=== PATIENT | male | born 1980 ===

== ENCOUNTER 2016-11-04 16:53 | Emergency (ER) | payer MEDICAID ==
[2016-11-04 17:20] VITALS: BP 126/70; PULSE 75; RESP 18; TEMP 99.5; O2SAT 98
--- NOTE | 2016-11-04 18:28 | ED PDOC ---
HPI: Wound Care - HPI Time Seen by Provider: 11/04/16 17:34 Chief Complaint (Nursing): Finger,Hand,&Wrist Chief Complaint (Provider): Right Hand Injury History Per: Patient History Of Present Illness: Alberto Fitzpatrick, a 36 year old male, presents to the ED for a laceration to his right palm. 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 Tetanus up to date. Denies numbness and tingling to right hand. The patient also reports some swelling to his ear. He states that it has been purulent with a foul odor for the past 2 months. He states that he was given antibiotics which did help but eventually the symptoms came back. Denies fevers , chills and injury to ear. Exam Limitations: no limitations Onset/Duration Of Symptoms: Hrs Current Symptoms Are (Timing): Still Present Location Of Injury: Right: Hand (Right palm) Past Medical History Reviewed: Historical Data, Nursing Documentation, Vital Signs Vital Signs: Last Vital Signs Temp 99.5 F 11/04/16 17:15 Pulse 75 11/04/16 17:15 Resp 18 11/04/16 17:15 BP 126/70 11/04/16 17:15 Pulse Ox 98 11/04/16 17:15 - Medical History PMH: Asthma - Social History Current smoker - smoking cessation education provided: No Ex-Smoker (has not smoked in the last 12 months): No Alcohol: None Drugs: Denies - Immunization History Hx Tetanus Toxoid Vaccination: Yes - Home Medications Home Medications: Ambulatory Orders Medication Instructions Recorded Amoxicillin/Clavulanate [Augmentin 1 tab PO BID #14 tab 11/04/16 500 MG-125 MG] Fluconazole [Diflucan] 200 mg PO DAILY #7 tab 11/04/16 - Allergies Allergies/Adverse Reactions: Allergies Allergy/AdvReac Type Severity Reaction Status Date / Time No Known Allergies Allergy Verified 11/04/16 17:15 Review of Systems ENT: Positive for: Ear Pain, Ear Discharge (purulent discharge and drainage) Musculoskeletal: Positive for: Hand Pain (laceration to right palm) Physical Exam - Reviewed Nursing Documentation Reviewed: Yes Vital Signs Reviewed: Yes - Physical Exam Appears: Positive for: Non-toxic, No Acute Distress Head Exam: Positive for: ATRAUMATIC, NORMAL INSPECTION, NORMOCEPHALIC Skin: Positive for: Normal Color, Warm, Dry Eye Exam: Positive for: Normal appearance, EOMI, PERRL ENT: Positive for: TM Is/Are (Ear canal and TM's normal; No active drainage.), Other (Swelling to the pinna; Cauliflower ear.) Extremity: Positive for: Normal ROM, Other (Wedge laceration to the thenar aspect of right hand; fairly superficial; no active bleeding.). Negative for: Tenderness, Pedal Edema, Deformity, Swelling Neurologic/Psych: Positive for: Alert, Oriented, Gait - ECG O2 Sat by Pulse Oximetry: 98 (RA) Pulse Ox Interpretation: Normal Medical Decision Making Medical Decision Makin Initial Impression: 36 year old male presenting with right hand laceration and ear infection Initial plan: Wound was cleaned with sodium chloride and steri-strips applied to keep wound in place. Patient was advised to allow steri strips to fall off on their own. Patient will aslo be treated for a fungal infection and also an acute infection. Patient advised to use warm compresses and follow up with ENT. Scribe Attestation Documented by Magi Fuentes acting as a scribe for Aletha Morton PA-C. Scribe Attestation All medical record entries made by the Scribe were at my direction and personally dictated by me. I have reviewed the chart and agree that the record accurately reflects my personal performance of the history, physical exam, medical decision making, and the department course for this patient. I have also personally directed, reviewed, and agree with the discharge instructions and disposition. Disposition - Clinical Impression Clinical Impression: Ear pain, Cauliflower ear, Laceration - Disposition Referrals: [facility] [Provider Group] Condition: STABLE Prescriptions: Amoxicillin/Clavulanate [Augmentin 500 MG-125 MG] 1 tab PO BID #14 tab Fluconazole [Diflucan] 200 mg PO DAILY #7 tab Instructions: Skin Avulsion (ED)
== END 2016-11-04 18:15 | disposition home or self-care (01) ==
LOC: H.ER 16:53
DX: S61.411A Laceration without foreign body of right hand, initial encounter (principal); W26.8XXA Contact with other sharp object(s), not elsewhere classified, initial encounter; Y99.0 Civilian activity done for income or pay; M95.10 Cauliflower ear, unspecified ear